=== PATIENT | male | born 1985 | race Caucasian/White ===

== ENCOUNTER 2017-05-16 06:00 | Inpatient (IN) | payer BC ==
[~2017-05-16] VITALS: Ht 175.3 cm; Wt 80.7 kg
--- NOTE | 2017-05-16 06:00 | NUR ---
PT QUITA BLS. TAKEN TO BED 7
[2017-05-16 06:07] VITALS: BP 153/91
--- NOTE | 2017-05-16 06:07 | NUR ---
bib EMS from home, placed on 515 by [facility] for self inflicted wounds with a jig box operator to left wrist. Bandage in place, no active bleeding noted. Pt arrived in 4 point restraints. Restraints removed upon placing pt in bed. Pt is calm and cooperative at this time. hx depression
--- NOTE | 2017-05-16 06:25 | NUR ---
Dr. Matos evaluating patient at bedside.
[2017-05-16 06:39] LABS: BASOPHILS # (AUTO) 0.1 K/uL (0.00-0.22); BASOPHILS % (AUTO) 1.7 % (0.0-2.0); EOSINOPHILS # (AUTO) 0.1 K/uL (0-0.4); EOSINOPHILS % (AUTO) 0.9 % (0.0-4.0); HEMATOCRIT 49.4 % (36-52); HEMOGLOBIN 16.8 g/dL (12.0-18.0); LYMPHOCYTES # (AUTO) 1.1 K/uL (2.0-11.5); LYMPHOCYTES % (AUTO) 14.3 % (20.5-51.1); MEAN CORPUSCULAR HEMOGLOBIN 30 pg (27-31); MEAN CORPUSCULAR HGB CONC 34 g/dL (33-37); MEAN CORPUSCULAR VOLUME 90 fL (80-94); MONOCYTES # (AUTO) 0.5 K/uL (0.8-1.0); NEUTROPHILS # (AUTO) 5.7 K/uL (1.8-7.7); NEUTROPHILS % (AUTO) 76.1 % (42.2-75.2); PLATELET COUNT (AUTO) 280 K/uL (140-450); RED BLOOD CELL COUNT(AUTO) 5.52 MIL/uL (4.20-6.10); RED CELL DISTRIBUTION WIDTH 12.1 % (11.6-13.7); WHITE BLOOD COUNT (AUTO) 7.5 K/uL (4.8-10.8)
[2017-05-16 06:45] LABS: ANION GAP 17.2 (8-16); CREATININE 1.2 mg/dL (0.7-1.3); POTASSIUM 4.2 mmol/L (3.5-5.1)
--- NOTE | 2017-05-16 06:47 | NUR ---
PT RESTING IN BED, VSS, FAMILY MEMBER AT BEDSIDE. WILL CONTINUE WITH CONTINUES MONITORING.
[2017-05-16 06:50] LABS: ALBUMIN 4.4 g/dL (3.4-5.0); TOTAL BILIRUBIN 0.7 mg/dL (0.0-1.0)
--- NOTE | 2017-05-16 07:20 | NUR ---
Pt report given to RINA BARAHONA. Transfer of care at this time.
--- NOTE | 2017-05-16 07:25 | NUR ---
RECEIVED REPORT FROM EDIN FLYNN; PT IN [facility]IT[facility]ON IN [facility]; PT IS CALM AND COOPERATIVE; PT IS AOX4; SUICIDIAL PRECAUTIONS IN PLACE
[2017-05-16 07:29] LABS: BARBITURATE, URINE NEG. ng/ml (NEG <=200); BENZODIAZEPINE, URINE NEG. ng/mL (NEG <=200); CANNABINOID, URINE NEG. ng/mL (NEG <=50); COCAINE, URINE NEG. ng/mL (NEG <=300); OPIATE, URINE NEG. ng/mL (NEG <=2000); PHENCYCLIDINE SCREEN,URINE NEG. ng/mL (NEG <=25)
--- NOTE | 2017-05-16 07:38 | NUR ---
PATIENT MOVED TO BED#3
--- NOTE | 2017-05-16 08:26 | NUR ---
PT ASKED IF HIS GIRLFRIEND CAN COME TO HIS BEDSIDE.BUT ALSO WAITING OUTSIDE;INFORMED CHARGE NURSE;
--- NOTE | 2017-05-16 09:41 | NUR ---
PT LYING ON BED; NO ACUTE DISTRESS NOTED;WILL CONTINUE TO MONITOR PT.
--- NOTE | 2017-05-16 10:35 | NUR ---
AT BEDSIDE;SAFETY MEASURES INSTITUTED;NO ACUTE DSITRESS NOTED;WILL CONTINUE TO MONITOR PT.
[2017-05-16] MEDS ORDERED: HYDROcodone/APAP 7.5/325 MG 1 TAB PO PRN (11:35)
[2017-05-16] MEDS ORDERED: ACETAMINOPHEN 325 MG TAB PO PRN (11:35)
[2017-05-16] MEDS ORDERED: ONDANSETRON 4 MG/2 ML VIAL IVP PRN (11:35)
--- NOTE | 2017-05-16 11:35 | NUR ---
Patient will be admitted to care of DR FUNEZ. Admited to ICU. Will go to room 5. Belongings list completed. Report to RINA ALFARO.
[2017-05-16] MEDS ORDERED: LORazepam 2 MG/ML VIAL IVP PRN (11:40)
[2017-05-16 11:59] LABS: PROTHROMBIN TIME 10.4 secs (10.8-13.4)
[2017-05-16 12:10] LABS: CHOL/HDL RATIO 7.1 (1-4.5); FREE T4 (FREE THYROXINE) 1.17 ng/dL (0.76-1.46); MAGNESIUM 2.3 mg/dL (1.8-2.4); PHOSPHORUS 3.3 mg/dL (2.5-4.9); THYROID STIMULATING HORMONE 1.5 uIU/mL (0.34-3.74)
[2017-05-16 12:18] VITALS: BP 130/77
--- NOTE | 2017-05-16 12:18 | NUR ---
RECEIVED PT FROM ER. PT SEEN AT BEDSIDE, AAOX4, ON ROOM AIR WITH NO S/S DISTRESS OR SOB. PT ON AIRCRAFT METALSMITH RUNNING SINUS RHYTHM WITH HR AT 90 AT THIS TIME. LEFT AC 20G IV NOTED, PATENT AND INTACT. PT ABLE TO MOVE X4 EXTREMITIES WITH NO WEAKNESS NOTED. PER PT, HE WAS DEPRESSED BECAUSE OF HIS SEPARATION FROM HIS , SO DECIDED TO CUT HIS WRISTS. HE HAS NO SUICIDAL IDEATIONS AT THIS TIME AND STATES THAT HE FEELS, "OKAY". NOTIFIED PT THAT HE MUST TELL RN IF HE HAS ANY SI. PT VERBALIZED UNDERSTANDING. NO REPORTS OF PAIN. LEFT WRIST LACERATION NOTED COVERED WITH DRESSING. NO DRAINAGE NOTED AT THIS TIME. SAFETY MEASURES CHECKED, CALL LIGHT LEFT AT BEDSIDE. WILL CONTINUE TO MONITOR.
--- NOTE | 2017-05-16 12:25 | NUR ---
PT'S AT BEDSIDE.
[2017-05-16 12:28] LABS: BILIRUBIN,URINE NEGATIVE (NEGATIVE); BLOOD, URINE NEGATIVE (NEGATIVE); COLOR,URINE YELLOW (YELLOW); LEUKOCYTE ESTERASE ,URINE NEGATIVE (NEGATIVE); NITRITE, URINE NEGATIVE (NEGATIVE); UGLUCOSE NEGATIVE (NEGATIVE)
[2017-05-16] MEDS: LORazepam 1 MG TAB PO SCH ×2 (12:34→20:12)
--- NOTE | 2017-05-16 12:34 | NUR ---
PT REFUSED ATIVAN AT THIS TIME. EXPLAINED MEDICATION REASON FOR USE AND EFFECT. PT VERBALIZED UNDERSTANDING BUT FEELS THAT HE DOES NOT NEED IT AT THIS TIME.
[2017-05-16 13:01] LABS: APPEARANCE,URINE CLEAR (CLEAR)
[2017-05-16 13:02] LABS: RBC,URINE 0-5 (RARE) /HPF (0-5); WBC,URINE 0-5 (RARE) /HPF (0-5)
[2017-05-16] MEDS: NACL 0.9% 1,000 ML IV SCH (14:17)
--- NOTE | 2017-05-16 15:40 | NUR ---
DR. DARBY AT BESIDE ASSESSING PATIENT. UPDATED MD ON PATIENT CONDITION. WILL CONTINUE TO MONITOR.
[2017-05-16 16:00] VITALS: BP 131/30
--- NOTE | 2017-05-16 16:15 | NUR ---
DR HOPSON AT BEDSIDE ASSESSING PATIENT. UPDATED MD ON PATIENT CONDITION. WILL CONTINUE TO MONITOR.
--- NOTE | 2017-05-16 17:37 | NUR ---
RECEIVED CALL FROM PATIENT'S , SHAHBAZ. UPDATED SHAHBAZ ON PATIENT'S CONDITION. ALL QUESTIONS ANSWERED AT THIS TIME.
--- NOTE | 2017-05-16 18:21 | NUR ---
REPORT GIVEN TO HUGO ANDERSON RN. LET HER KNOW THAT WE WILL BRING PATIENT AT 1830.
--- NOTE | 2017-05-16 18:30 | NUR ---
TRANSFERRED PT TO [facility] UNIT. PT TOLERATED WELL, WALKED TO BED. NO S/S DISTRESS OR SOB. RINA ANDERSON AT BEDSIDE.
--- NOTE | 2017-05-16 18:38 | NUR ---
PATIENT VITAL SIGNS TEMPERATURE 98, PULSE 97, BLOOD PRESSURE 129/73, RESPIRATIONS 20, OXYGEN SATURATION 96%, PATIENT DENIES PAIN.
--- NOTE | 2017-05-16 18:38 | NUR ---
RECEIVED REPORT FROM ANTOINETTE FLYNN. PT AWAKE AND ALERT, NO SIGNS OF ACUTE DISTRESS. BOWEL SOUND ACTIVE IN ALL 4 QUADRANTS. LEFT WRIST WOUND COVERED WITH CLEAN DRESSING. IV PATENT AND ASYMPTOMATIC. PATIENT DENIES PAIN AT THIS TIME. AMBULATORY WITH BRP. RE-ORIENTED PATIENT TO HOSPITAL AND TO UNIT, PT VERBALIZED UNDERSTANDING. BED IN LOW POSITION WITH BILATERAL HALF SIDE RAILS UP, CALL LIGHT WITHIN REACH. WILL CONTINUE TO MONITOR.
--- NOTE | 2017-05-16 19:10 | NUR ---
PATIENT AWAKE AND ALERT, NO SIGNS OF ACUTE DISTRESS. ENDORSED TO COMMUNITY INTEGRATION SPECIALIST NURSE FOR CONTINUITY OF CARE.
--- NOTE | 2017-05-16 19:11 | NUR ---
RECEIVED REPORT FROM AM SHIFT NURSE. PT IS AOX4, ABLE TO MAKE NEEDS KNOWN. WITH RESPIRATIONS CLEAR AND UNLABORED, NO COMPLAINTS OF PAIN AT THIS TIME. HAS NO SUICIDAL INTENTIONS AT THIS TIME. NOTED WITH A DRESSING TO THE LEFT WRISTS, INTACT AND NOTICED NO DRAINAGE. ORIENTED PT TO THE UNIT, VERBALIZED UNDERSTANDING. WILL CONTINUE TO MONITOR FOR ANY CHANGES. ALL NEEDS ATTENDED. CALL LIGHT WITHIN REACH. SAFETY CHECKS IN PLACE.
[2017-05-16 20:00] VITALS: BP 134/83
[2017-05-16] MEDS: DOCUSATE SODIUM 100 MG GELCAP PO SCH (20:13)
--- NOTE | 2017-05-16 20:13 | NUR ---
DUE MEDS GIVEN, WELL TOLERATED BY PATIENT. REFUSED COLACE, INFORMED PT OF THE BENEFITS OF THE MEDICATION, BUT STILL REFUSED THE MEDICATION. WILL CONTINUE TO MONITOR FOR ANY CHANGES.
--- NOTE | 2017-05-16 23:30 | NUR ---
SAW WITH A FEMALE SCRAP CHARGER, TOLD HER THAT THE VISITING HOURS ARE OVER, VERBALIZED UNDERSTANDING.
[2017-05-17] VITALS: BP 133/77
--- NOTE | 2017-05-17 | NUR ---
VITALS STABLE. NO S/S OF DISTRESS. NO COMPLAINTS OF PAIN. WILL CONTINUE TO MONITOR FOR ANY CHANGES.
--- NOTE | 2017-05-17 02:10 | NUR ---
MADE ROUNDS, PATIENT ASLEEP. NO S/S OF DISTRESS. NO COMPLAINTS OF PAIN. WILL CONTINUE TO MONITOR FOR ANY CHANGES.
--- NOTE | 2017-05-17 04:10 | NUR ---
CHECKED ON PT, PT ASLEEP. NO S/S OF DISTRESS. NO COMPLAINTS OF PAIN. WILL CONTINUE TO MONITOR FOR ANY CHANGES.
[2017-05-17] MEDS: LORazepam 1 MG TAB PO SCH (05:01)
[2017-05-17 06:32] LABS: BASOPHILS # (AUTO) 0.2 K/uL (0.00-0.22); BASOPHILS % (AUTO) 3.4 % (0.0-2.0); EOSINOPHILS # (AUTO) 0.1 K/uL (0-0.4); EOSINOPHILS % (AUTO) 1.9 % (0.0-4.0); HEMATOCRIT 44.5 % (36-52); LYMPHOCYTES # (AUTO) 1.9 K/uL (2.0-11.5); LYMPHOCYTES % (AUTO) 25.8 % (20.5-51.1); MEAN CORPUSCULAR HEMOGLOBIN 31 pg (27-31); MEAN CORPUSCULAR HGB CONC 34 g/dL (33-37); MEAN CORPUSCULAR VOLUME 90 fL (80-94); MONOCYTES % (AUTO) 14.3 % (1.7-9.3); NEUTROPHILS # (AUTO) 4.1 K/uL (1.8-7.7); NEUTROPHILS % (AUTO) 54.6 % (42.2-75.2); PLATELET COUNT (AUTO) 241 K/uL (140-450); RED BLOOD CELL COUNT(AUTO) 4.93 MIL/uL (4.20-6.10); RED CELL DISTRIBUTION WIDTH 12.4 % (11.6-13.7); WHITE BLOOD COUNT (AUTO) 7.3 K/uL (4.8-10.8)
[2017-05-17 06:51] LABS: ANION GAP 11.7 (8-16); CARBON DIOXIDE 27.2 mmol/L (21-32); CREATININE 1.3 mg/dL (0.7-1.3); POTASSIUM 3.9 mmol/L (3.5-5.1)
[2017-05-17 06:59] LABS: PHOSPHORUS 3.6 mg/dL (2.5-4.9)
--- NOTE | 2017-05-17 07:15 | NUR ---
RECEIVED REPORT FROM REVIEW ENGINEER RN FOR CONTINUITY OF CARE. PATIENT IS AAOX4, NO RESPIRATORY DISTRESS AT THIS TIME. PT HAS BANDAGE ON RIGHT WRIST, NO DRAINAGE NOTICED AT THIS TIME. PATIENT HAS NS @50 RUNNING TO RIGHT AC, 20G, IV IS PATENT, CLEAN, DRY AND INTACT. NO SIGNS AND SYMPTOMS OF INFILTRATION OR PHLEBITIS AT THIS TIME. BED IS IN LOWEST POSITION, SIDERAILS UP X2, HOB AT 30 DEGREES, CALL LIGHT WITHIN REACH. INSTRUCTED PATIENT TO USE CALL LIGHT IF NEEDS ANYTHING. WILL CONTINUE TO MONITOR.
--- NOTE | 2017-05-17 07:15 | NUR ---
ENDORSED TO AM SHIFT NURSE FOR CONTINUITY OF CARE IN STABLE CONDITION.
--- NOTE | 2017-05-17 08:25 | NUR ---
PATIENT ALERT AND AWAKE, DENIES ANY PAIN AT THIS TIME. WILL CONTINUE TO MONITOR.
--- NOTE | 2017-05-17 08:47 | NUR ---
PATIENT HAS BEEN SCREENED AND CATEGORIZED LOW NUTRITION RISK. PATIENT WILL BE SEEN WITHIN 7 DAYS OF ADMISSION. 05/22/[address]
[2017-05-17] MEDS ORDERED: THIAMINE 100 MG TAB PO SCH (09:00)
[2017-05-17] MEDS ORDERED: MULTIVITAMIN 1 TAB PO SCH (09:00)
[2017-05-17] MEDS ORDERED: FOLIC ACID 1 MG TAB PO SCH (09:00)
[2017-05-17] MEDS: DOCUSATE SODIUM 100 MG GELCAP PO SCH (09:23)
[2017-05-17] MEDS: NACL 0.9% 1,000 ML IV SCH (09:28)
--- NOTE | 2017-05-17 09:40 | NUR ---
SIGNIFICANT OTHER AT BEDSIDE, NO SIGNS AND SYMPTOMS OF DISTRESS NOTED AT THIS TIME.
--- NOTE | 2017-05-17 11:40 | NUR ---
DISCHARGE ORDERS IN PLACE. WILL CARRY OUT ORDERS.
--- NOTE | 2017-05-17 12:30 | NUR ---
INSTRUCTED PATIENT ON FOLLOW UP VISITS, TO SCHEDULE APPT WITH PRIMARY AND PSYCHIATRIST. INSTRUCTIONS ON SIGNS AND SYMPTOMS, AND WHEN TO SEEK EMERGENCY CARE. PATIENT VERBALIZED UNDERSTANDING. DISCONTINUED IV FLUID, AND IV. CATHETER INTACT, APPLIED DRESSING, CLEAN AND DRY. PATIENT IN STABLE CONDITION.
--- NOTE | 2017-05-17 14:38 | NUR ---
CM NOTE PER CLEANER OPERATOR GOYO, SHE SPOKE WITH SOMEONE FROM [facility] AND NO AUTHORIZATION IS REQUIRED FOR THIS ADMISSION.
== END 2017-05-17 12:50 | disposition home or self-care (01) | DRG 604 ==
LOC: MED 06:00 → MIC 11:37 → MTU 18:37
PROVIDERS: ADMIT Student in an Organized Health Care Education/Training Program; ATTEND Student in an Organized Health Care Education/Training Program
DX: S51.812A Laceration without foreign body of left forearm, initial encounter (principal); G92 Toxic encephalopathy; R45.851 Suicidal ideations; F32.9 Major depressive disorder, single episode, unspecified; E78.5 Hyperlipidemia, unspecified; F41.1 Generalized anxiety disorder; F10.20 Alcohol dependence, uncomplicated
CPT/HCPCS: 36415; 71010; 80048; 80053; 80305; 81001; 83036; 83605; 83735; 83880; 84100; 84439; 84443; 84484; 85025; 85610; 85730; 87040; 87081; 87086; 90471; 90715; 93005; 99285; G0482; J7030